=== PATIENT | male | born 1990 | race African-American/Black ===

== ENCOUNTER 2020-02-09 16:05 | Emergency (ER) | payer SELFPAY ==
[~2020-02-09] VITALS: Ht 182.9 cm; Wt 89.0 kg
[2020-02-09 16:15] VITALS: BP 151/85
== END 2020-02-09 19:07 | disposition left against medical advice (07) ==
LOC: ER 16:05
DX: R68.89 Other general symptoms and signs (principal); Z53.21 Procedure and treatment not carried out due to patient leaving prior to being seen by health care provider

== ENCOUNTER 2022-09-06 10:20 | Emergency (ER) | payer MEDICAID ==
[~2022-09-06] VITALS: Ht 182.9 cm; Wt 89.0 kg
[2022-09-06] MEDS ORDERED: IBUPROFEN 600MG TABLET PO ONE (11:00)
[2022-09-06] MEDS ORDERED: BACITRACIN ZINC OINT UDPKT TOP ONE (11:00)
[2022-09-06 11:21] VITALS: BP 152/71
[2022-09-06] MEDS ORDERED: BO1 TP (11:25)
[2022-09-06] MEDS ORDERED: IBUP-2029 MT (11:25)
[2022-09-06] MEDS ORDERED: LIDOCAINE HCL/PF 1% 10 MG/ML 5ML VIAL INFIL ONE (11:30)
== END 2022-09-06 14:53 | disposition home or self-care (01) ==
LOC: ER 10:20
DX: S01.511A Laceration without foreign body of lip, initial encounter (principal); I10 Essential (primary) hypertension; Y04.0XXA Assault by unarmed brawl or fight, initial encounter; Y93.89 Activity, other specified; Y92.89 Other specified places as the place of occurrence of the external cause
CPT/HCPCS: 12011; 99282; J3490; Z7610

== ENCOUNTER 2022-09-20 09:51 | Emergency (ER) | payer MEDICAID ==
[~2022-09-20] VITALS: Ht 175.3 cm; Wt 75.0 kg
[~2022-09-20 09:51] MED LIST: BO1 TP; IBUP-2029 MT
[2022-09-20 10:12] VITALS: BP 125/88
== END 2022-09-20 11:15 | disposition home or self-care (01) ==
LOC: ER 09:51
DX: Z48.02 Encounter for removal of sutures (principal)
CPT/HCPCS: 99281

== ENCOUNTER 2023-02-27 00:13 | Emergency (ER) | payer MEDICAID ==
[~2023-02-27] VITALS: Ht 182.9 cm; Wt 96.0 kg
[2023-02-27 00:21] VITALS: BP 146/98
[2023-02-27] MEDS ORDERED: DOCU-150 MT (03:00)
== END 2023-02-27 03:10 | disposition home or self-care (01) ==
LOC: ER 00:13
DX: K40.90 Unilateral inguinal hernia, without obstruction or gangrene, not specified as recurrent (principal); I10 Essential (primary) hypertension
CPT/HCPCS: 99282

== ENCOUNTER 2023-07-31 17:59 | Emergency (ER) | payer MEDICAID, OTHER ==
[~2023-07-31] VITALS: Ht 182.9 cm; Wt 90.0 kg
[~2023-07-31 17:59] MED LIST changes: +DOCU-150 MT
[2023-07-31 18:10] VITALS: BP 134/75; O2SAT 99
[2023-07-31] MEDS ORDERED: NAPR-1176 MT (21:49)
[2023-08-01 00:29] VITALS: PULSE 92; RESP 20; TEMP 97.8
== END 2023-08-01 00:28 | disposition home or self-care (01) ==
LOC: ER 17:59
DX: S93.401A Sprain of unspecified ligament of right ankle, initial encounter (principal); X58.XXXA Exposure to other specified factors, initial encounter; Y93.9 Activity, unspecified; Y92.89 Other specified places as the place of occurrence of the external cause; Y99.8 Other external cause status
CPT/HCPCS: 73610; 99283; Z7610